=== PATIENT | male | born 1960 | race Caucasian/White ===

== ENCOUNTER 2020-11-30 12:04 | Emergency (ER) | payer OTHER ==
[2020-11-30 12:17] VITALS: BP 134/91; PULSE 99; RESP 18; TEMP 98.7
[2020-11-30] MEDS ORDERED: KETOROLAC 15 MG/ML 1 ML VIAL IM STA (12:41)
--- NOTE | 2020-11-30 12:51 | ED ---
General Adult HPI - General Chief complaint: Back Pain/Injury Stated complaint: tailbone pain Time Seen by Provider: 11/30/20 12:20 Source: patient, RN notes reviewed, old records reviewed Mode of arrival: ambulatory Limitations: no limitations - History of Present Illness Initial comments: Patient is a 60-year-old male with past medical history remarkable for asthma, COPD, GERD, hypertension, sleep apnea, PTSD, prior heart cath with no intervention presents emergency department with a one-week history of tailbone pain. Patient states he has been experiencing tailbone pain over the last week. He has been assisting with taking care of a relative by moving him around the house as he does require assistance with movement. He denies any known falls, strains, pains. Denies any history of IV drug use. Denies any saddle anesthesias, difficulty ambulating other than tailbone pain, difficulty urinating, difficulty with bowel movements. Denies any urinary retention. Denies any nausea or vomiting. Denies any chest pain, shortness breath. Denies any history of blood clots. He denies any weakness, numbness. He otherwise has no acute complaints at this time. Is uncertain what is causing his current symptoms. States he has been attempting to treat the pain with ice packs as well as ibuprofen and Tylenol without much improvement over the last week.Patient denies any trauma or falls to the lower back. - Related Data Home Medications Medication Instructions Recorded Confirmed Albuterol Sulfate [Ventolin HFA] 1 puff INHALATION RT-Q6H PRN 11/30/20 11/30/20 Aspirin EC [Ecotrin Low Dose] 81 mg PO DAILY 11/30/20 11/30/20 Docusate [Colace] 100 mg PO DAILY 11/30/20 11/30/20 Ezetimibe/Simvastatin 1 tab PO DAILY 11/30/20 11/30/20 [Ezetimibe/Simvastatin 10-40 mg] Irbesartan 75 mg PO DAILY 11/30/20 11/30/20 Isomethept/Dichlphn/Acetaminop 1 - 2 cap PO Q6H PRN 11/30/20 11/30/20 [Midrin] L.acidoph,Paracasei, B.lactis 1 cap PO DAILY 11/30/20 11/30/20 [Probiotic] Levalbuterol HCl [Xopenex 0.63 mg INHALATION RT-DAILY PRN 11/30/20 11/30/20 Nebulized] Levothyroxine Sodium [Synthroid] 75 mcg PO DAILY 11/30/20 11/30/20 Multivitamins, Thera [Multivitamin 1 tab PO DAILY 11/30/20 11/30/20 (formulary)] Omeprazole 20 mg PO BID 11/30/20 11/30/20 Tiotropium Br/Olodaterol HCl 2 spray INHALATION RT-DAILY 11/30/20 11/30/20 [Stiolto Respimat Inhal [place]] Previous Rx's Medication Instructions Recorded Acetaminophen Tab [Tylenol] 500 mg PO Q6H PRN 14 Days #56 11/30/20 tablet Ibuprofen [Motrin] 800 mg PO Q8H PRN 14 Days #42 tab 11/30/20 Lidocaine 5% Patch [Lidoderm 5% 1 patch TOPICAL DAILY PRN 14 Days 11/30/20 Patch] #14 patch Allergies Allergy/AdvReac Type Severity Reaction Status Date / Time methylprednisolone Allergy Rash/Hives Verified 11/30/20 13:55 [From Medrol] thimerosal Allergy Swelling Verified 11/30/20 13:55 pain medication Allergy Unknown Uncoded 11/30/20 12:18 Review of Systems ROS Statement: Those systems with pertinent positive or pertinent negative responses have been documented in the HPI. Review of Systems: CONST: Denies fever EYES: Denies blurry vision ENT: Denies nasal congestion C/V: Denies Chest pain RESP: Denies shortness of breath GI: Denies abdominal pain : Denies dysuria SKIN: Denies rash. MSK: Endorses tailbone pain NEURO: Denies headache ROS Other: All systems not noted in ROS Statement are negative. Past Medical History Past Medical History: Asthma, COPD, GERD/Reflux, Hypertension, Sleep Apnea/CP AP/BIPAP Past Surgical History: Cholecystectomy, Heart Catheterization, Hernia Repair, Orthopedic Surgery Additional Past Surgical History / Comment(s): 30%blockage, eardrum repair, Past Psychological History: PTSD Smoking Status: Former smoker Past Alcohol Use History: None Reported Past Drug Use History: None Reported General Exam - General Exam Comments Initial Comments: General: Appears in mild distress secondary to tailbone pain. HEAD: Normal with no signs of head trauma. EYES: PERRLA, EOMI, conjunctiva normal, no discharge. ENT: Hearing grossly intact, normal oropharynx. RESPIRATORY: Clear breath sounds bilaterally. No wheezes, rales, or rhonchi. C/V: Regular rate and rhythm. S1 and S2 auscultated, no edema, peripheral pulses 2+ and intact throughout ABD: Abd is soft, nontender, nondistended EXT: Normal range of motion of all 4 extremities without any obvious deformity. Patient's pelvis is stable. Patient has tenderness to palpation midline of the lower lumbar spine, L5 as well as of the tailbone. Patient is tenderness over the sacrum. He has paraspinal muscle tenderness of the sites as well. No thoracic or cervical spine tenderness to palpation. SKIN: No rashes or lesions observed on exposed skin. NEURO: Alert and oriented 4. Cranial issue through 12 are intact. No focal sensory strength deficits. Patient is no saddle anesthesias. He is able to ambulate. Strength is 5 out of 5 throughout in all 4 extremities. There are no sensory deficits. Limitations: no limitations Course Vital Signs 11/30/20 12:11 Temperature 98.7 F Pulse Rate 99 Respiratory 18 Rate Blood Pressure 134/91 O2 Sat by Pulse 96 Oximetry Medical Decision Making - Medical Decision Making Based on the patient's mentation physical exam, I'm concerned for possible acute bony traumatic injury to patient's lower back versus a muscle strain. This been ongoing for 1 week. It does not seem to be getting much better, however patient states that it is not getting much worse. He has no obvious trauma. Therefore we will obtain a lumbar spine CT as well as pelvic CT at this time. I have low concern for any spinal cord involvement or cauda equina syndrome as he has no other signs or symptoms of it, including negative saddle anesthesias, urinary retention, lower extremity weakness, difficulty in regulating. I did offer the patient analgesia with narcotics, however he refuses and states that he would prefer to stick with Motrin and Tylenol. I did offer and Toradol which he accepted. Patient was in agreement with this plan. Patient's imaging revealed no acute fracture or subluxation of the pelvis, sacrum, coccyx, lumbar spine. On reevaluation, patient's pain is slightly improved at this time. He is still able to ambulate but has severe pain when sitting down. I explained that he has no acute fractures. Due to his lack of neurological findings I very low suspicion for cauda equina syndrome and do not believe that he requires an MRI at this time. I splinted him that I would like him to rest and follow-up with orthopedics if the pain does not improve. He was in agreement this plan. He is likely experiencing either musculoskeletal pain secondary to muscle sprain or bone bruising. Patient will be sent home with lidocaine patches as well as extra strength Tylenol and 800 mg ibuprofen. I will provide the patient with a prescription for lidocaine patch, extra strength tylenol, ibuprofen. I instructed the patient to follow up with their PCP in the next 3 days. I provided contact information for follow up with orthopedic surgery. I explained that the patient should return to the emergency department if they experience any worsening symptoms. Strict return precautions were discussed with the patient. The patient expressed understanding of these instructions. I answered all questions that the patient had. The patient was discharged home in fair condition with their prescriptions and follow up information. Disposition Clinical Impression: Sacral pain, Musculoskeletal pain, Muscle strain Disposition: HOME SELF-CARE Condition: Fair Instructions (If sedation given, give patient instructions): Acute Low Back Pain (ED) Prescriptions: Lidocaine 5% Patch [Lidoderm 5% Patch] 1 patch TOPICAL DAILY PRN 14 Days #14 patch PRN Reason: Pain Ibuprofen [Motrin] 800 mg PO Q8H PRN 14 Days #42 tab PRN Reason: pain Acetaminophen Tab [Tylenol] 500 mg PO Q6H PRN 14 Days #56 tablet PRN Reason: Pain Is patient prescribed a controlled substance at d/c from ED?: No Referrals: None,Stated [Primary Care Provider] - 1-2 days Errol Xiong MD [Medical Doctor] - 1-2 days
--- NOTE | 2020-11-30 13:53 | CT ---
EXAMINATION TYPE: CT lumbar spine wo con DATE OF EXAM: 11/30/2020 1:46 PM COMPARISON: None. HISTORY: Acute pain. "tailbone pain" No trauma or injury x [address] DLP: 1403.6 mGycm Automated exposure control for dose reduction was used. Unenhanced CT of the lumbar spine was performed. Bone and soft tissue window settings are submitted as well as coronal and sagittal reconstructions. There are 5 lumbar-type vertebra. Moderate to severe disc space narrowing with mild to moderate spurr ing L4-L5 level. Moderate disc space narrowing with mild to moderate spurring at L5-S1 level. Vertebr al body heights are maintained. Alignment is satisfactory. Mild to moderate multilevel anterior and l ateral spurring. No acute fracture or dislocation. Axial images show T12-L1, L1-L2, and L2-L3 levels to appear within normal limits. Axial images at L3-L4 level show mild broad disc bulge and mild facet degenerative changes bilaterall y. Mild effacement of the anterior thecal sac is seen. Patent bilateral neural foramina. Axial images at L4-L5 level show mild to moderate facet arthropathy and ligamentum flavum hypertrophy effacing posterior lateral thecal sac. There is posterior spur disc complex effacing the anterior th ecal sac. There is mild/moderate bilateral neural foraminal narrowing. Axial images at L5-S1 level shows [id number] facet arthropathy bilaterally. Posterior spur disc complex is present. [id number] bilateral neural foraminal narrowing noted. Appendix is seen and appears within normal limits. Moderate Right-sided colonic fecal prominence is n oted. No suspicious small bowel dilatation. Cholecystectomy clips are identified. IMPRESSION: No acute findings are evident.
--- NOTE | 2020-11-30 13:55 | CT ---
EXAMINATION TYPE: CT pelvis wo con DATE OF EXAM: 11/30/2020 COMPARISON: Same day lumbar spine CT HISTORY: "Tailbone pain", No trauma or injury. [address] DLP: 457.2 mGycm Automated exposure control for dose reduction was used. FINDINGS: Urinary bladder appears within normal limits. Prostate gland upper limits upper limits of normal in s ize to mildly enlarged. No suspicious small or large bowel dilatation. Moderate amount of fecal prominence in the right colon . Normal-appearing appendix. No free fluid in the pelvis. No abnormal greater than 1 cm pelvic or groin adenopathy. Pubic symphysis is intact. Hip joints are symmetric with mild to moderate acetabular spurring bilater ally. No abnormal joint space narrowing. Sacroiliac joints are symmetric in both within normal limits . No acute or subacute displaced sacral or coccygeal fracture noted. IMPRESSION: No acute findings are evident.
[2020-11-30] MEDS ORDERED: LIDOCAINE 5% PATCH TOPICAL STA (14:25)
== END 2020-11-30 14:29 | disposition home or self-care (01) ==
LOC: EC 12:04
DX: S39.012A Strain of muscle, fascia and tendon of lower back, initial encounter (principal); M53.3 Sacrococcygeal disorders, not elsewhere classified; I10 Essential (primary) hypertension; J44.9 Chronic obstructive pulmonary disease, unspecified; K21.9 Gastro-esophageal reflux disease without esophagitis; Z79.1 Long term (current) use of non-steroidal anti-inflammatories (NSAID); Z79.82 Long term (current) use of aspirin; Z79.890 Hormone replacement therapy; Z79.899 Other long term (current) drug therapy; Z87.891 Personal history of nicotine dependence; Z88.6 Allergy status to analgesic agent; X58.XXXA Exposure to other specified factors, initial encounter
CPT/HCPCS: 72192; 72131; 96372; 99283; J1885